=== PATIENT | male | born 1995 | race Caucasian/White ===

== ENCOUNTER 2018-09-01 17:57 | Emergency (ER) | payer SELFPAY ==
[2018-09-01] MEDS ORDERED: Morphine 10 MG/ML VIAL ONE (18:22)
[2018-09-01] MEDS ORDERED: Ondansetron PF 4 MG/2 ML Vial ONE (18:23)
--- NOTE | 2018-09-01 19:08 | RAD ---
RIGHT SHOULDER THREE VIEWS: History: Fall. Right shoulder injury. FINDINGS: Humeral head lies immediately inferior to the glenoid. No fracture fragments are apparent. IMPRESSION: Right shoulder anterior dislocation. POS: [facility]
[2018-09-01] MEDS ORDERED: KETAMINE 100 MG/ML (5ML VIAL) ONE (19:22)
--- NOTE | 2018-09-01 20:21 | RAD ---
RIGHT SHOULDER TWO VIEWS: 09/01/18 HISTORY: Shoulder dislocation with reduction. COMPARISON: Earlier exam on the same date. FINDINGS: Acromioclavicular and glenohumeral alignment are maintained. No fracture fragments. IMPRESSION: Interval reduction of the right shoulder dislocation. POS: [facility]
== END 2018-09-01 20:41 | disposition home or self-care (01) ==
LOC: ERS 17:57
DX: S43.014A Anterior dislocation of right humerus, initial encounter (principal); W01.0XXA Fall on same level from slipping, tripping and stumbling without subsequent striking against object, initial encounter
CPT/HCPCS: 23650; 96374; 96375; 99152; J2270; J2405